=== PATIENT | male | born 1980 | race Caucasian/White ===

== ENCOUNTER 2019-06-01 10:33 | Emergency (ER) | payer OTHER ==
--- NOTE | 2019-06-01 11:10 | ED ---
Skin Complaint - HPI Summary HPI Summary: The patient is a 38 y/o male presenting to [facility] with a chief complaint of gradually worsening erythematous and warm rash onset yesterday. He reports that he had a lesion on his upper left back about three to four weeks ago, which he had treated with two antibiotic courses which he has finished. Yesterday, he noticed that there was inflammation around the abscess, and then there was an erythematous and warm rash that began to spread from the back to the face, chest , arms, and legs. The rash is not pruritic. He endorses some numbness and tingling in the legs this morning when he had the rash, as well as myalgias and fatigue. He denies any fevers, sore throat, or rhinorrhea. He had all of his vaccinations when he was a child. PMHx: diverticulitis. No FHx. Current smoker, no EtOH, previous marijuana use. Medications reviewed. Allergies noted. - History of Current Complaint Chief Complaint: EDRashSkinAbscess Time Seen by Provider: 06/01/19 10:37 Stated Complaint: R/O MEASLES Hx Obtained From: Patient Onset/Duration: Started Hours Ago - yesterday, Still Present Timing: Constant Onset Severity: Mild Current Severity: Moderate Pain Intensity: 0 Pain Scale Used: 0-10 Numeric Skin Location: Diffuse, Face, Chest, Arm, Abdomen, Leg, Other: - back Character: Redness Aggravating Symptom(s): Nothing Alleviating Symptom(s): Nothing Associated Signs & Symptoms: Numbness - legs, Rash - Allergy/Home Medications Allergies/Adverse Reactions: Allergies Allergy/AdvReac Type Severity Reaction Status Date / Time No Known Allergies Allergy Verified 04/28/14 15:40 PMH/Surg Hx/FS Hx/Imm Hx Endocrine/Hematology History: Denies: Hx Diabetes Cardiovascular History: Denies: Hx Congestive Heart Failure, Hx Hypertension GI History: Reports: Other GI Disorders - diverticulitis History: Denies: Hx Renal Disease Neurological History: Reports: Other Neuro Impairments/Disorders - head inj 06/26 - Surgical History Surgical History: None Surgery Procedure, Year, and Place: none Infectious Disease History: No Infectious Disease History: Denies: Traveled Outside the [place] in Last 30 Days - Social History Alcohol Use: None Alcohol Amount: 4-5x per week Hx Substance Use: Yes Substance Use Type: Reports: Marijuana Substance Use Comment - Amount & Last Used: none now but marijuana use in past Hx Tobacco Use: Yes Smoking Status (MU): Current Every Day Smoker Review of Systems Positive: Fatigue. Negative: Fever Negative: Sore Throat, Nasal Discharge Positive: Myalgia Positive: Rash - erythematous, warm, diffuse across body Positive: Numbness - BLE All Other Systems Reviewed And Are Negative: Yes Physical Exam - Summary Physical Exam Summary: Constitutional: Well-developed, Well-nourished, Alert. (-) Distressed Skin: Morbilliform rash to the back, chest, head, hands, and arms, 1cm open wound to the low left scapular with surround erythema HENT: Normocephalic; Atraumatic; No koplik spots, Erythema of the hard palate Eyes: Conjunctiva normal Neck: Musculoskeletal ROM normal neck. (-) JVD, (-) Stridor, (-) Nuchal rigidity Cardio: Rhythm regular, rate normal, Heart sounds normal; Intact distal pulses; Radial pulses are 2+ and symmetric. (-) Murmur Pulmonary/Chest wall: Effort normal. (-) Respiratory distress, (-) Wheezes, (-) Rales Abd: Soft, (-) tenderness, (-) Distension, (-) Guarding, (-) Rebound Musculoskeletal: (-) Edema Lymph: (-) Cervical adenopathy Neuro: Alert, Oriented x3 Psych: Mood and affect Normal Triage Information Reviewed: Yes Vital Signs On Initial Exam: Initial Vitals Temp Pulse Resp BP Pulse Ox 98.5 F 76 16 116/86 97 06/01/19 10:40 06/01/19 10:40 06/01/19 10:40 06/01/19 10:40 06/01/19 10:40 Vital Signs Reviewed: Yes Procedures - Sedation Patient Received Moderate/Deep Sedation with Procedure: No Diagnostics - Vital Signs Vital Signs Temp Pulse Resp BP Pulse Ox 06/01/19 10:40 98.5 F 76 16 116/86 97 - Laboratory Result Diagrams: 06/01/19 10:54 06/01/19 10:54 Lab Statement: Any lab studies that have been ordered have been reviewed, and results considered in the medical decision making process. Re-Evaluation - Re-Evaluation First Eval Re-Evaluation Time: 12:15 Comment: The Department of Health believes that the patient does not need to be tested for measles since the patient has not had any sick visitors, and he has been in custody since 2018. Course/Dx - Course Course Of Treatment: 38 y/o male w recent MRSA absess p/w morbilliform rash. - rash began on back, spread to chest then face. - wound w mild erythema, no drainage, no WBC or fever. - no koplik spots. No coryza, rhinorrhea, cough. UTD vaccinations, per Department of Health, no known sick exposures or concern for measles exposure. Lower suspicion for measles. - Rash could be secondary to drug reaction, versus viral exanthem. - labs without esonophilia, only 2 days of symptoms, normal LFTs, Cr, do not suspect DRESS. - no oral involvement. - Diagnoses Provider Diagnoses: Morbilliform rash Discharge ED - Sign-Out/Discharge Documenting (check all that apply): Patient Departure - Patient will be discharged home. - Discharge Plan Condition: Stable Disposition: HOME Patient Education Materials: Acute Rash (ED) Referrals: [facility] [Outside] Additional Instructions: You were seen in the ER for rash. We discussed w the Department of Health and there was low suspicion for measles. You either have a drug eruption rash or viral exanthem. He can take Benadryl and Zyrtec as needed for itching and syndrome control. If you have fever, sore throat, worsening of your symptoms, please be evaluated by medical professional. Please follow up with the doctor in the next 1-2 days. Return for worsening symptoms. - Billing Disposition and Condition Condition: STABLE Disposition: Home - Attestation Statements Document Initiated by Hunter: Yes Documenting Scribe: Sonia Nina Provider For Whom Hunter is Documenting (Include Credential): MD Anya Kennedyibhenri Attestation: I, anya Farribed for Dr. Belem Stone MD on 06/01/19 at 1301. Scribe Documentation Reviewed: Yes Provider Attestation: The documentation as recorded by the Sonia chavez accurately reflects the service I personally performed and the decisions made by me, Dr. Belem Stone MD Status of Scribe Document: Viewed
[2019-06-01 11:43] LABS: ABS Basophils 0.1 10^3/ul (0-0.2); ABS Eosinophils 0.4 10^3/ul (0-0.6); ABS Lymphocytes 1.8 10^3/ul (1.0-4.8); ABS Monocytes 0.8 10^3/ul (0-0.8); ABS Neutrophils 4.9 10^3/ul (1.5-7.7); Eosinophil % 5.5 %; Hematocrit 48 % (42-52); Hemoglobin 16.8 g/dL (14.0-18.0); Lymphocyte % 22.2 %; Mean Corpuscular HGB Conc 35 g/dL (31-36); Mean Corpuscular Hemoglobin 29 pg (27-31); Mean Corpuscular Volume 83 fL (80-94); Mean Platelet Volume 8.2 fL (7.4-10.4); Nucleated Red Blood Cells % 0.1; Platelet Count 312 10^3/uL (150-450); Red Cell Distribution Width 13 % (10-15)
[2019-06-01 11:54] LABS: ALT 34 U/L (7-52); Albumin 4.5 g/dL (3.2-5.2); Albumin/Globulin Ratio 1.4 (1-3); Alkaline Phosphatase 65 U/L (34-104); BUN/Creatinine Ratio 16.5 (8-20); Blood Urea Nitrogen 15 mg/dL (6-24); CO2 Carbon Dioxide 29 mmol/L (22-32); Chloride 103 mmol/L (101-111); EGFR African American 114.1 (>60); EGFR Non-African American 94.3 (>60); Globulin 3.3 g/dL (2-4); Glucose 65 mg/dL (70-100); Sodium 139 mmol/L (135-145); Total Protein 7.8 g/dL (6.4-8.9)
[2019-06-01 12:21] LABS: Anion Gap 7 mmol/L (2-11)
[2019-06-01] MEDS ORDERED: Cetirizine* 10 MG TAB PO ONE (13:00)
[2019-06-01 13:17] VITALS: BP 113/80
== END 2019-06-01 13:18 | disposition home or self-care (01) ==
LOC: ED 10:33
DX: R21 Rash and other nonspecific skin eruption (principal); R20.0 Anesthesia of skin; M79.10 Myalgia, unspecified site; R53.83 Other fatigue; Z86.14 Personal history of Methicillin resistant Staphylococcus aureus infection; F17.200 Nicotine dependence, unspecified, uncomplicated
CPT/HCPCS: 36415; 80053; 85025; 99283; A9270-GY